=== PATIENT | male | born 1975 | race African-American/Black ===

== ENCOUNTER 2016-11-29 11:11 | Emergency (ER) | payer MEDICAID, OTHER ==
[~2016-11-29] VITALS: Ht 175.3 cm; Wt 82.0 kg
[2016-11-29 12:24] VITALS: BP 110/68
[2016-11-29] MEDS ORDERED: [UNRECOGNIZED DRUG - OTHER] (12:24)
== END 2016-11-29 14:23 | disposition home or self-care (01) ==
LOC: ER 11:11
DX: M25.562 Pain in left knee (principal); G89.29 Other chronic pain
CPT/HCPCS: 99283

== ENCOUNTER 2018-04-28 14:57 | Emergency (ER) | payer MEDICAID ==
[~2018-04-28] VITALS: Ht 175.3 cm; Wt 78.0 kg
[~2018-04-28 14:57] MED LIST: [UNRECOGNIZED DRUG - OTHER]
[2018-04-28 17:29] LABS: BASOPHILS % 0.2 % (0.0-2.0); EOSINOPHILS % 0.5 % (0.0-5.0); HEMATOCRIT. 33.3 % (42.0-52.0); HEMOGLOBIN. 11.2 g/dL (14.0-18.0); LYMPHOCYTES % 10.2 % (20.0-50.0); MEAN CORPUSCULAR HEMOGLOBIN 31.7 pg (28.0-32.0); MEAN CORPUSCULAR VOLUME 94.1 fL (80.0-94.0); MEAN PLATELET VOLUME 8.7 fl (7.4-10.4); MONOCYTES % 5.2 % (2.0-8.0); NEUTROPHILS % 83.9 % (40.0-76.0); PLATELET 339 x1000/uL (130-400); RED BLOOD CELL COUNT 3.54 mill/uL (4.7-6.1); RED CELL DISTRIBUTION WIDTH 16.8 % (11.6-14.6)
[2018-04-28 17:33] LABS: CHLORIDE 103 mEq/L (98-107)
[2018-04-28] MEDS ORDERED: LIDOCAINE HCL/EPINEPHRINE 1%-EPI 1:100,000 20 ML VIAL INFIL ONE (18:45)
[2018-04-28] MEDS ORDERED: LIDOCAINE HCL/EPINEPHRINE 1%-EPI 1:100,000 50 ML VIAL INFIL ONE (18:45)
[2018-04-28] MEDS ORDERED: ACETAMINOPHEN WITH CODEINE 300/30MG TABLET PO ONE (18:45)
[2018-04-28] MEDS ORDERED: LIDOCAINE 1%/EPI 1:100,000 10 ML VIAL IJ ONE (18:45)
[2018-04-28] MEDS ORDERED: LIDOCAINE HCL/EPINEPHRINE 1%-EPI 1:100,000 30 ML VIAL INFIL ONE (18:45)
[2018-04-28] MEDS ORDERED: LIDOCAINE HCL/PF 1% 10 MG/ML 5ML VIAL IJ ONE (18:45)
[2018-04-28 20:10] VITALS: BP 105/65
== END 2018-04-28 20:10 | disposition home or self-care (01) ==
LOC: ER 14:57
DX: T63.391A Toxic effect of venom of other spider, accidental (unintentional), initial encounter (principal); L02.31 Cutaneous abscess of buttock; L02.33 Carbuncle of buttock; Y92.89 Other specified places as the place of occurrence of the external cause
CPT/HCPCS: 10060; 36415; 80048; 85025; 99284; J3490; Z7610

== ENCOUNTER 2021-05-08 20:08 | Emergency (ER) | payer MEDICAID ==
[~2021-05-08] VITALS: Ht 180.3 cm; Wt 80.0 kg
[2021-05-08] MEDS ORDERED: LORAZEPAM 2MG/ML CPJ IV ONE (21:45)
[2021-05-08 23:26] LABS: BASOPHILS % 0.2 % (0.0-2.0); EOSINOPHILS % 0.6 % (0.0-5.0); HEMATOCRIT. 39.5 % (42.0-52.0); HEMOGLOBIN. 13.3 g/dL (14.0-18.0); LYMPHOCYTES % 9.2 % (20.0-50.0); MEAN CORPUSCULAR HEMOGLOBIN 32.2 pg (28.0-32.0); MEAN CORPUSCULAR VOLUME 95.7 fL (80.0-94.0); MEAN PLATELET VOLUME 8.3 fl (7.4-10.4); MONOCYTES % 4.1 % (2.0-8.0); NEUTROPHILS % 85.9 % (40.0-76.0); PLATELET 299 x1000/uL (130-400); RED BLOOD CELL COUNT 4.13 mill/uL (4.7-6.1); RED CELL DISTRIBUTION WIDTH 14.1 % (11.6-14.6)
[2021-05-08] MEDS ORDERED: HALOPERIDOL LACTATE 5MG/ML VIAL IM ONE (23:30)
[2021-05-08 23:36] LABS: CHLORIDE 109 mEq/L (98-107)
[2021-05-09 06:29] VITALS: BP 137/72
== END 2021-05-09 06:31 | disposition home or self-care (01) ==
LOC: ER 20:08 → CANBEDREQ 05-09 16:00
DX: T43.621A Poisoning by amphetamines, accidental (unintentional), initial encounter (principal); J45.909 Unspecified asthma, uncomplicated; B20 Human immunodeficiency virus [HIV] disease; Y92.9 Unspecified place or not applicable; Z20.822 Contact with and (suspected) exposure to COVID-19
CPT/HCPCS: 36415; 71045; 80053; 85025; 87426; 96372; 96374; 99285; J1630; J2060